=== PATIENT | male | born 1985 | race African-American/Black ===

== ENCOUNTER 2024-03-16 20:41 | Emergency (ER) | payer MEDICAID, OTHER ==
[~2024-03-16] VITALS: Ht 188 cm; Wt 128.6 kg
[2024-03-16 21:15] VITALS: BP 113/71; PULSE 71; RESP 20; O2SAT 96
[2024-03-17] MEDS: TETANUS-DIPTH-ACEL PERTUSSIS 0.5ML SYR Tdap IM ONE
[2024-03-17] MEDS: LIDOCAINE 1% HCL (LOCAL ANESTH.) INJ 20ML MDV ONE (00:10)
== END 2024-03-17 01:23 | disposition home or self-care (01) ==
LOC: ER 20:41
DX: S81.012A Laceration without foreign body, left knee, initial encounter (principal); M79.642 Pain in left hand; V87.8XXA Person injured in other specified noncollision transport accidents involving motor vehicle (traffic), initial encounter; Y93.89 Activity, other specified; Y92.89 Other specified places as the place of occurrence of the external cause; Y99.8 Other external cause status
CPT/HCPCS: 12032; 73100; 73562; 99284; J2001; 90715

== ENCOUNTER 2024-03-21 09:42 | Emergency (ER) | payer SELFPAY ==
[~2024-03-21] VITALS: Ht 188 cm; Wt 128.7 kg
[2024-03-21 10:46] VITALS: BP 151/97; PULSE 99; RESP 16; TEMP 98; O2SAT 97
[2024-03-21] MEDS: cefTRIAXone 2GM/50ML D5W 50 ML IV ONE (12:07)
[2024-03-21 12:13] LABS: Basophils # (auto) 0.1 10 ^3/uL (0-0.2); Hemoglobin 13.6 g/dL (13.5-17.5); Lymphocytes # (auto) 2.2 10 ^3/uL (0.4-5.4)
[2024-03-21 12:15] LABS: Basophils % (auto) 1.2 % (0.0-2.0); Eosinophils # (auto) 0.1 10 ^3/uL (0-0.8); Eosinophils % (auto) 1.8 % (0.0-7.0); Hematocrit 43.2 % (41.0-53.0); Lymphocytes % (auto) 30.7 % (10.0-50.0); Mean Corpuscular Hemoglobin 23.6 pg (28.0-32.0); Mean Corpuscular Hgb Conc. 31.4 g/dL (32.0-36.0); Mean Corpuscular Volume 74.9 fL (80.0-100.0); Monocytes # (auto) 0.6 10 ^3/uL (0-1.3); Monocytes % (auto) 7.8 % (0.0-12.0); Neutrophils # (auto) 4.2 10 ^3/uL (1.6-8.6); Neutrophils % (auto) 58.5 % (37.0-80.0); Nucleated Red Blood Cells % 0.2 %; Red Blood Cells 5.76 10^6/uL (4.5-5.90); Red Cell Distribution Width 16.7 % (11.8-14.3); White Blood Cell 7.2 10^3/uL (4.4-10.8)
[2024-03-21 12:19] LABS: Chloride 109 mmol/L (98-107); Potassium 3.9 mmol/L (3.5-5.1); Sodium 141 mmol/L (136-145)
[2024-03-21 12:20] LABS: Anion Gap 3 (5-15); Calcium 9.1 mg/dL (8.7-10.4); Carbon Dioxide 29 mmol/L (20-30)
[2024-03-21 12:25] LABS: BUN/Creatinine Ratio 12.4 (10.0-20.0); Blood Urea Nitrogen 13 mg/dL (9-23); Glucose 73 mg/dL (74-106)
[2024-03-21] MEDS ORDERED: NAPR-746 PO (13:10)
[2024-03-21] MEDS ORDERED: BACDST PO (13:10)
== END 2024-03-21 13:35 | disposition home or self-care (01) ==
LOC: ER 10:35
DX: S81.012D Laceration without foreign body, left knee, subsequent encounter (principal); Z79.899 Other long term (current) drug therapy; X58.XXXD Exposure to other specified factors, subsequent encounter
CPT/HCPCS: 36415; 73564; 80048; 85025; 87040; 96365; 99284; J0696

== ENCOUNTER 2024-04-01 08:25 | Emergency (ER) | payer MEDICAID ==
[~2024-04-01] VITALS: Ht 188 cm; Wt 127.1 kg
[~2024-04-01 08:25] MED LIST: BACDST PO; NAPR-746 PO
[2024-04-01 08:58] VITALS: BP 60/95; PULSE 78; RESP 18; TEMP 97.6; O2SAT 97
== END 2024-04-01 09:14 | disposition home or self-care (01) ==
LOC: ER 08:25
DX: S81.012D Laceration without foreign body, left knee, subsequent encounter (principal); X58.XXXD Exposure to other specified factors, subsequent encounter